=== PATIENT | female | born 1975 | race Caucasian/White ===

== ENCOUNTER 2017-12-31 14:34 | Emergency (ER) | payer OTHER ==
[2017-12-31 15:14] VITALS: BP 102/58; PULSE 60; RESP 18; TEMP 97.7
--- NOTE | 2017-12-31 15:35 | ED ---
General Adult HPI - General Chief complaint: Extremity Injury, Upper Stated complaint: R finger Pain Time Seen by Provider: 12/31/17 15:14 Source: patient, RN notes reviewed Mode of arrival: ambulatory Limitations: no limitations - History of Present Illness Initial comments: She is a 42-year-old female who presents the emergency department with complaints of right finger pain and swelling. She reports that she was walking down some icy steps yesterday slipped and caught herself on her hand and that her right middle finger bent backwards at the middle joint. Patient denies any recent head trauma, loss of consciousness, fever, chills, shortness of breath, chest pain, back pain, abdominal pain, nausea or vomiting, numbness or tingling , headaches or visual changes, or any other complaints. - Related Data Previous Rx's Medication Instructions Recorded Acetaminophen Tab [Tylenol] 1,000 mg PO TID 5 Days tablet 12/31/17 Ibuprofen [Motrin] 600 mg PO Q6HR PRN #40 day 12/31/17 Allergies Allergy/AdvReac Type Severity Reaction Status Date / Time sulfamethoxazole Allergy Unknown Verified 12/31/17 15:46 [From Bactrim] trimethoprim [From Bactrim] Allergy Unknown Verified 12/31/17 15:46 Review of Systems ROS Statement: Those systems with pertinent positive or pertinent negative responses have been documented in the HPI. ROS Other: All systems not noted in ROS Statement are negative. Past Medical History Past Medical History: No Reported History History of Any Multi-Drug Resistant Organisms: None Reported Past Surgical History: Orthopedic Surgery Additional Past Surgical History / Comment(s): menicus repair, wisdom teeth. Past Psychological History: No Psychological Hx Reported Smoking Status: Never smoker Past Alcohol Use History: Occasional Past Drug Use History: None Reported General Exam Limitations: no limitations General appearance: alert, in no apparent distress Head exam: Present: atraumatic, normocephalic Eye exam: Present: normal appearance Respiratory exam: Present: normal lung sounds bilaterally Cardiovascular Exam: Present: regular rate, normal rhythm Extremities exam: Present: tenderness (Right middle finger.), normal capillary refill, other (Unable to bend right middle finger. Finger able to maintain extension against resistance. Senstation intact. Bruising present over PIP joint. PIP joint swollen.) Neurological exam: Present: alert, oriented X3 Psychiatric exam: Present: normal affect, normal mood Skin exam: Present: other Course Vital Signs 12/31/17 15:11 Temperature 97.7 F Pulse Rate 60 Respiratory 18 Rate Blood Pressure 102/58 O2 Sat by Pulse 98 Oximetry Medical Decision Making - Medical Decision Making Given Toradol here for pain. X-ray of the right hand reveals intra-articular fracture of the proximal interphalangeal joint of the third digit of the right hand. No dislocation. Patient may continue wearing the splint she wore into the ER as it is appropriate for the injury. Case discussed in detail with attending physician Dr. Cool. Disposition Clinical Impression: Fracture of phalanx of finger Disposition: HOME SELF-CARE Condition: Good Instructions: Finger Fracture (ED) Additional Instructions: Follow-up with PCP in 2 days. Follow-up with orthopedic physician in 2 days. Return to emergency department if symptoms worsen or any other concerns. Prescriptions: Acetaminophen Tab [Tylenol] 1,000 mg PO TID 5 Days tablet Ibuprofen [Motrin] 600 mg PO Q6HR PRN #40 day PRN Reason: Pain Is patient prescribed a controlled substance at d/c from ED?: No Referrals: Feng Bourgeois MD [Primary Care Provider] - 1-2 days Balaji Noonan MD [STAFF PHYSICIAN] - 1-2 days Time of Disposition: 16:29
[2017-12-31] MEDS ORDERED: KETOROLAC 60 MG/2 ML VIAL IM STA (15:41)
--- NOTE | 2017-12-31 15:56 | XR ---
Right hand HISTORY: Trauma and pain 3 views of the right hand. Bone mineralization, joint spaces and alignment are maintained. Small ossific densities present at th e volar aspect of the proximal interphalangeal joint of the third digit of the right hand. There is s oft tissue swelling. IMPRESSION: No dislocation. Intra-articular fracture of the proximal interphalangeal joint of the thi rd digit of the right hand: R aspect.
== END 2017-12-31 16:32 | disposition home or self-care (01) ==
LOC: EC 14:34
DX: S62.612A Displaced fracture of proximal phalanx of right middle finger, initial encounter for closed fracture (principal); Z88.2 Allergy status to sulfonamides; W00.1XXA Fall from stairs and steps due to ice and snow, initial encounter; Y93.01 Activity, walking, marching and hiking
CPT/HCPCS: 73130; 99283; 96372; J1885

== ENCOUNTER → 2020-12-15 | Outpatient (CLI) | payer OTHER ==
--- NOTE | 2020-12-16 05:07 | MR ---
EXAMINATION TYPE: MR wrist RT wo con DATE OF EXAM: 12/15/2020 COMPARISON: None HISTORY: Right wrist pain, and limited movement for 15 months. Multiplanar multiecho imaging of the right wrist without contrast. Carpal bones are intact. Intercarpal joint spaces are fairly normal. The triangular cartilage appears intact. Collateral ligaments appear intact. Metacarpals are intact. Radiocarpal joint space is antolin l. There is no evidence of a soft tissue mass. Flexor and extensor tendons of the wrist appear intact. There is no evidence of joint effusion. IMPRESSION: No fracture. No evidence of ligament or tendon tear. No significant joint space narrowing.
== END | disposition home or self-care (01) ==
LOC: RADMRIMAIN 20:59
PROVIDERS: ATTEND Orthopaedic Surgery
DX: M25.531 Pain in right wrist (principal)

== ENCOUNTER → 2023-07-25 | Outpatient (CLI) | payer OTHER | END | disposition home or self-care (01) | LOC: RADMAMWWP 13:00 | PROVIDERS: ATTEND Family Medicine | DX: R92.8 Other abnormal and inconclusive findings on diagnostic imaging of breast (principal) ==